=== PATIENT | male | born 2000 | race Caucasian/White ===

== ENCOUNTER 2023-09-21 16:37 | Emergency (ER) | payer SELFPAY ==
[~2023-09-21] VITALS: Ht 172.7 cm; Wt 88.6 kg
[2023-09-21 17:05] VITALS: BP 129/58; TEMP 98.3
[2023-09-21 17:47] VITALS: PULSE 63
== END 2023-09-21 17:47 | disposition home or self-care (01) ==
LOC: COL.ER 16:37
DX: S60.021A Contusion of right index finger without damage to nail, initial encounter (principal); Z23 Encounter for immunization; Z91.040 Latex allergy status; W20.8XXA Other cause of strike by thrown, projected or falling object, initial encounter; Y99.0 Civilian activity done for income or pay